=== PATIENT | male | born 1970 | race Caucasian/White ===

== ENCOUNTER 2018-01-06 10:29 | Emergency (ER) | payer OTHER ==
[~2018-01-06] VITALS: Ht 193 cm; Wt 68.8 kg
[2018-01-06 12:15] VITALS: BP 134/94
[2018-01-06] MEDS ORDERED: NAPROXEN500 MG PO (13:21)
[2018-01-06] MEDS ORDERED: VALIUM2 MG PO (13:21)
== END 2018-01-06 13:50 | disposition home or self-care (01) ==
LOC: EME 10:29
DX: S06.0X0A Concussion without loss of consciousness, initial encounter (principal); J32.9 Chronic sinusitis, unspecified; V49.50XA Passenger injured in collision with unspecified motor vehicles in traffic accident, initial encounter; Y92.410 Unspecified street and highway as the place of occurrence of the external cause
CPT/HCPCS: 70450; 70486; 99281; 99284; J1885